=== PATIENT | male | born 1985 | race Caucasian/White ===

== ENCOUNTER 2019-07-05 00:56 | Emergency (ER) | payer SELFPAY ==
[~2019-07-05] VITALS: Ht 195.6 cm; Wt 121.6 kg
[2019-07-05 01:03] VITALS: BP 163/94
[2019-07-05] MEDS ORDERED: CYCL10TA2 PO (01:20)
[2019-07-05] MEDS ORDERED: HYDR-2163 PO (01:20)
[2019-07-05] MEDS ORDERED: HYDROcodone/APAP 10/325 1 TAB TABLET PO ONE (01:30)
--- NOTE | 2019-07-05 06:16 | PHYS DOC ---
Past Medical History Past Medical History: No Pertinent History Past Surgical History: No Surgical History Alcohol Use: Rarely Drug Use: Marijuana Adult General Chief Complaint Chief Complaint: SHOULDER INJURY HPI HPI Patient is a 33 year old presents with right mid paravertebral thoracic pain for several hours after lifting heavy wood structure with a friend earlier in the evening. Pain is sharp, localized numbness nonradiating. It is worse with palpation and movement. No medications or therapy's taken prior to ED arrival. No chest pain shortness of breath. No other acute symptoms or complaints. [] Review of Systems Review of Systems Review symptoms as per history of present illness. All other systems were reviewed and found to be within normal limits, except as documented in this note. Current Medications Current Medications Current Medications Medications (Trade) Dose Ordered Sig/[place] Start Time Stop Time Status Last Admin Dose Admin Acetaminophen/ Hydrocodone Bitart (Lortab 10) 1 tab 1X ONCE 07/05/19 01:30 07/05/19 01:31 DC 07/05/19 01:30 1 TAB Allergies Allergies Allergies Coded Allergies Type Severity Reaction Last Updated Verified No Known Drug Allergies 07/05/19 No Physical Exam Physical Exam Constitutional: Well developed, well nourished, no acute distress, non-toxic appearance. [] HENT: Normocephalic, atraumatic, bilateral external ears normal, oropharynx moist,, nose normal. [] Eyes: PERRLA, EOMI, conjunctiva normal, no discharge. [] Neck: Normal range of motion, no tenderness, supple. [] Back: R scapular pain/tenderness, reproducing pain complaint. [] Extremities: No tenderness, no edema. [] Neurologic: Alert and oriented X 3, normal motor function, normal sensory function, no focal deficits noted. [] Psychologic: Affect normal, judgement normal, mood normal. [] Current Patient Data Vital Signs Vital Signs Date Time Temp Pulse Resp B/P (MAP) Pulse Ox O2 Delivery O2 Flow Rate FiO2 07/05/19 01:30 Room Air 07/05/19 01:03 98.2 78 12 163/94 (117) 98 98.2 EKG EKG [] Radiology/Procedures Radiology/Procedures [] Course & Med Decision Making Course & Med Decision Making Pertinent Labs and Imaging studies reviewed. (See chart for details) [Mechanical back pain] Dragon Disclaimer Dragon Disclaimer This electronic medical record was generated, in whole or in part, using a voice recognition dictation system. Departure Departure Impression: Primary Impression: Acute thoracic back pain Disposition: HOME, SELF-CARE Condition: STABLE Referrals: NO PCP (PCP) Patient Instructions: Thoracic Strain, [id number] Additional Instructions: Please continue ibuprofen for pain and take hydrocodone and Flexeril as needed for additional relief. Follow-up with local primary care physician in 1-2 days. Scripts Cyclobenzaprine Hcl (CYCLOBENZAPRINE HCL) 10 Mg Tablet 10 MG PO TID, #30 TAB Prov: KEVIN CAMPBELL DO 07/05/19 Hydrocodone Bit/Acetaminophen (HYDROCODONE-APAP 5-300) 1 Each Tablet 1 TAB PO PRN BID PRN for pain MDD 2 Tablet(s) for 3 Days, #10 TAB 0 Refills Prov: KEVIN CAMPBELL DO 07/05/19 KEVIN CAMPBELL DO Jul 05, 2019 06:16
== END 2019-07-05 01:35 | disposition home or self-care (01) ==
LOC: ER 00:56
DX: M54.6 Pain in thoracic spine (principal); F12.90 Cannabis use, unspecified, uncomplicated
CPT/HCPCS: 99283